=== PATIENT | male | born 1980 | race Caucasian/White ===

== ENCOUNTER 2024-07-31 05:53 | Emergency (ER) | payer OTHER ==
[~2024-07-31] VITALS: Ht 182.9 cm; Wt 158.8 kg
[2024-07-31 06:03] VITALS: BP 147/97
[2024-07-31] MEDS ORDERED: Dexamethasone Sod Phos 10 MG/ML 1ML VIAL IV ONE (06:25)
[2024-07-31 06:41] LABS: Mean Corpuscular HGB 30.2 pg (26.0-34.0); Mean Corpuscular HGB Conc 33.7 g/dL (31.5-36.5); Mean Corpuscular Volume 90 fL (80-100); Mean Platelet Volume 8.8 fL (9.1-12.4); Platelet Count 160 K/mm3 (150-400); RDW Standard Deviation 42.2 fL (35.1-46.3); Red Blood Cell Count 6.62 M/mm3 (4.30-5.90); White Blood Cell Count 5.39 K/mm3 (4.00-11.30)
[2024-07-31 06:49] LABS: Hematocrit 59.4 % (37.0-53.0)
[2024-07-31 06:56] LABS: Bun/Creatinine Ratio 19.6 (12.0-20.0); Calcium, Blood 9.2 mg/dL (8.5-10.1); Creatinine, Blood 0.66 mg/dL (0.60-1.20); Potassium, Blood 4.2 mmol/L (3.5-5.5)
[2024-07-31 07:28] LABS: BAND PERCENT MAN 2 % (0-8); BASOPHILS PERCENT MAN 0 % (0-2); EOSINOPHILS PERCENT MAN 2 % (0-6); LYMPHOCYTES % ATYPICAL MANUAL 7 % (0-0); LYMPHOCYTES ABSOLUTE MAN 1.67 K/mm3 (0.84-5.20); LYMPHOCYTES PERCENT MAN 24 % (21-46); MONOCYTES ABSOLUTE MAN 0.32 K/mm3 (0.16-1.47); MONOCYTES PERCENT MAN 6 % (4-13); NEUTROPHILS ABSOLUTE MAN 3.28 K/mm3 (1.96-9.15); SEG NEUTROPHILS PERCENT MAN 59 % (41-73); TOTAL CELLS COUNTED 100
[2024-07-31] MEDS ORDERED: CLIN300 PO (07:40)
== END 2024-07-31 08:46 | disposition home or self-care (01) ==
LOC: ER 05:53
PROVIDERS: Emergency Medicine
DX: L03.211 Cellulitis of face (principal); J44.89 Other specified chronic obstructive pulmonary disease; G47.30 Sleep apnea, unspecified
CPT/HCPCS: 70487; 80048; 85025; 96374; 99284-25; J1100; Q9967

== ENCOUNTER 2024-08-16 06:27 | Emergency (ER) | payer OTHER ==
[~2024-08-16] VITALS: Ht 182.9 cm; Wt 162.4 kg
[~2024-08-16 06:27] MED LIST: CLIN300 PO
[2024-08-16 07:54] LABS: BASOPHILS ABSOLUTE AUTO 0.02 K/mm3 (0.00-0.23); BASOPHILS PERCENT AUTO 0 % (0-2); EOSINOPHILS ABSOLUTE AUTO 0.24 K/mm3 (0.00-0.68); EOSINOPHILS PERCENT AUTO 4 % (0-6); Hematocrit 52.1 % (37.0-53.0); Hemoglobin 17.4 g/dL (13.5-17.5); IMMATURE GRAN ABSOLUTE AUTO 0.01 K/mm3 (0.00-0.10); IMMATURE GRAN PERCENT AUTO 0 % (0-1); LYMPHOCYTES ABSOLUTE AUTO 1.33 K/mm3 (0.84-5.20); LYMPHOCYTES PERCENT AUTO 23 % (21-46); MONOCYTES PERCENT AUTO 9 % (4-13); Mean Corpuscular HGB 29.9 pg (26.0-34.0); Mean Corpuscular HGB Conc 33.4 g/dL (31.5-36.5); Mean Corpuscular Volume 90 fL (80-100); NEUTROPHILS ABSOLUTE AUTO 3.71 K/mm3 (1.96-9.15); NEUTROPHILS PERCENT AUTO 64 % (41-73); Platelet Count 178 K/mm3 (150-400); RDW Coefficient Variation 12.6 % (11.7-14.2); RDW Standard Deviation 41.2 fL (35.1-46.3); Red Blood Cell Count 5.81 M/mm3 (4.30-5.90); White Blood Cell Count 5.81 K/mm3 (4.00-11.30)
[2024-08-16 08:11] LABS: Albumin/Globulin Ratio 0.8 (0.8-1.8); Bilirubin, Total 0.5 mg/dL (0.1-1.0); Bun/Creatinine Ratio 19.8 (12.0-20.0); Creatinine, Blood 0.56 mg/dL (0.60-1.20)
[2024-08-16 09:45] VITALS: BP 134/60
[2024-08-16] MEDS ORDERED: FLUTICASONE-SA1 EA12 IH (09:55)
[2024-08-16] MEDS ORDERED: ALBUTEROL HFA 90MCG (09:55)
== END 2024-08-16 09:55 | disposition home or self-care (01) ==
LOC: ER 06:27
PROVIDERS: Emergency Medicine
DX: R06.02 Shortness of breath (principal); J44.89 Other specified chronic obstructive pulmonary disease
CPT/HCPCS: 71260; 80053; 83880; 84484; 85025; 85379; 93005; 93010; 99284-25; Q9967